=== PATIENT | male | born 1960 | race African-American/Black ===

== ENCOUNTER 2022-03-20 13:09 | Emergency (ER) | payer MEDICARE, OTHER ==
[~2022-03-20] VITALS: Ht 177.8 cm; Wt 100.0 kg
[~2022-03-20 13:09] MED LIST: ASPI-1406; BENA1TAB21 PO
[2022-03-20 14:04] LABS: BASOPHILS % 0.9 % (0.0-2.0); EOSINOPHILS % 4.1 % (0.0-5.0); HEMATOCRIT. 40.2 % (42.0-52.0); HEMOGLOBIN. 13.2 g/dL (14.0-18.0); LYMPHOCYTES % 17.2 % (20.0-50.0); MEAN CORPUSCULAR HEMOGLOBIN 30.4 pg (28.0-32.0); MEAN CORPUSCULAR VOLUME 92.9 fL (80.0-94.0); MEAN PLATELET VOLUME 9.5 fl (7.4-10.4); MONOCYTES % 8.6 % (2.0-8.0); NEUTROPHILS % 69.2 % (40.0-76.0); PLATELET 138 x1000/uL (130-400); RED BLOOD CELL COUNT 4.33 mill/uL (4.7-6.1); RED CELL DISTRIBUTION WIDTH 15.4 % (11.6-14.6)
[2022-03-20 14:13] LABS: CHLORIDE 106 mEq/L (98-107)
[2022-03-20] MEDS ORDERED: ASPIRIN 81MG TABLET PO ONE (14:45)
[2022-03-20] MEDS ORDERED: FUROSEMIDE 40MG/4ML VIAL IV ONE (14:45)
[2022-03-20] MEDS ORDERED: ASPIRIN 81MG TABLET PO NR (16:30)
[2022-03-20] MEDS ORDERED: FUROSEMIDE 40MG/4ML VIAL IV NR (16:30)
[2022-03-20 20:30] VITALS: BP 130/85
== END 2022-03-20 23:39 | disposition admitted as inpatient to this hospital (09) ==
LOC: ER 13:09 → EDBEDREQTM 14:38 → EDBEDREQ 14:38 → ER 23:39 → CANBEDREQ 03-21 21:27
DX: I11.0 Hypertensive heart disease with heart failure (principal); I50.9 Heart failure, unspecified; J44.9 Chronic obstructive pulmonary disease, unspecified; E11.9 Type 2 diabetes mellitus without complications; Z20.822 Contact with and (suspected) exposure to COVID-19
CPT/HCPCS: 36415; 71045; 80053; 83880; 84484; 85025; 87426; 93005; 96374; 99285; C9803; J1940

== ENCOUNTER 2023-03-05 17:16 | Emergency (ER) | payer MEDICARE, OTHER ==
[~2023-03-05] VITALS: Ht 180.3 cm; Wt 75.0 kg
[2023-03-05 17:21] VITALS: O2SAT 96
[2023-03-05 18:12] LABS: BASOPHILS % 0.7 % (0.0-2.0); EOSINOPHILS % 1.2 % (0.0-5.0); HEMATOCRIT. 48.1 % (42.0-52.0); HEMOGLOBIN. 15.9 g/dL (14.0-18.0); LYMPHOCYTES % 20.8 % (20.0-50.0); MEAN CORPUSCULAR HEMOGLOBIN 30.8 pg (28.0-32.0); MEAN CORPUSCULAR HGB CONC 33.1 g/dL (31.0-37.0); MEAN CORPUSCULAR VOLUME 92.9 fL (80.0-94.0); MEAN PLATELET VOLUME 9.5 fl (7.4-10.4); MONOCYTES % 6.1 % (2.0-8.0); NEUTROPHILS % 71.2 % (40.0-76.0); PLATELET 199 x1000/uL (130-400); RED BLOOD CELL COUNT 5.18 mill/uL (4.7-6.1); RED CELL DISTRIBUTION WIDTH 15.5 % (11.6-14.6); WHITE BLOOD COUNT 8.2 x1000/uL (4.5-11.0)
[2023-03-05 18:25] LABS: ALANINE AMINOTRANSFERASE 25 IU/L (10-49); ALBUMIN 4.2 g/dL (3.2-4.8); ASPARTATE AMINOTRANSFERASE 34 IU/L (<34); BILIRUBIN TOTAL 0.9 mg/dL (0.1-1.0); CALCIUM 9.4 mg/dL (8.7-10.4); CARBON DIOXIDE 22 mEq/L (21-32); CHLORIDE 103 mEq/L (98-107); CREATINE KINASE 124 IU/L (46-171); CREATININE 1.4 mg/dL (0.6-1.3); ETHANOL BLOOD 290 mg/dL (<10); GLUCOSE 84 mg/dL (70-105); POTASSIUM 3.6 mEq/L (3.5-5.1); PROTEIN TOTAL 7.4 g/dL (6.0-8.3); SODIUM 136 mEq/L (136-145); TROPONIN I HIGH SENSITIVITY 30 ng/L (3.0-53); UREA NITROGEN BLOOD 31 mg/dL (9-23)
[2023-03-05] MEDS ORDERED: SODIUM CHLORIDE 0.9% 250 ML IV ONE (19:00)
[2023-03-05 20:08] VITALS: TEMP 97.7
[2023-03-05] MEDS: CEFTRIAXONE 1GM PREMIX 50 ML IV NR ×2 (20:57→22:13)
[2023-03-05 22:35] VITALS: BP 103/72; PULSE 77; RESP 16
== END 2023-03-05 23:28 | disposition left against medical advice (07) ==
LOC: ER 17:16 → MICUSO 21:57 → UNDOADMIN 21:57 → EDBEDREQ 22:07 → EDBEDREQTM 22:07 → ER 23:28
DX: J18.9 Pneumonia, unspecified organism (principal); I11.0 Hypertensive heart disease with heart failure; E11.9 Type 2 diabetes mellitus without complications; I50.9 Heart failure, unspecified; R55 Syncope and collapse; J44.9 Chronic obstructive pulmonary disease, unspecified
CPT/HCPCS: 80053; 80320; 82550; 83880; 85025; 84484; 36415; 71045; 70450; 93005; 96365; 99285; J0696; J7050; G0480